=== PATIENT | female | born 1935 | race Caucasian/White ===

== ENCOUNTER 2018-02-01 13:55 | Emergency (ER) | payer MEDICARE ==
[~2018-02-01] VITALS: Ht 160 cm; Wt 124.7 kg
[~2018-02-01 13:55] MED LIST: AMIODARONE HCL200 MG; ARICEPT5 MG PO; ASPIR-LOW81 MG PO; ATORVASTATIN CA20 MG PO; CARVEDILOL3.125 MG PO; CITALOPRAM HBR20 MG PO; CYANOCOBAL1000 MCG/M IV; FUROSEMIDE PO; FUROSEMIDE40 MG PO; GABAPENTIN300 MG PO; HYDRALAZINE HCL25 MG PO; HYDROXYZINE HCL25 MG PO; LISINOPRIL2.5 MG PO; NAMENDA10 MG; NITROFURANTOIN100 MG PO; POTASSIUM CHLO10 MEQ PO; PROMETHAZINE HC25 M1 PO; ROPINIROLE HCL1 MG PO; ROPINIROLE HCL5 MG PO; SERTRALINE HCL50 MG PO; XANAX1 MG PO; [UNRECOGNIZED DRUG - OTHER]; eliquis PO
--- OUTSIDE RECORDS SUMMARY | 2018-02-01 13:58 | XMS REPORT | Clinical Summary ---
Author Author [facility] Organization [facility] Address Unknown Phone Unavailable Care Team Providers Care Pet Care Assistant Name Role Phone Fabian Tipton MD PCP Unavailable Allergies Active Allergy Reactions Severity Noted Date Comments Penicillins 05/23/2017 Current Medications Prescription Sig. Disp. Refills Start End Date Status Date lisinopril Take 2.5 mg by mouth Active (PRINIVIL,ZESTRIL) 2.5 mg daily. tablet memantine (NAMENDA) 10 MG Take 10 mg by mouth 2 Active tablet (two) times a day. aspirin (ECOTRIN) 81 MG Take 81 mg by mouth Active enteric coated tablet daily. ALPRAZolam (XANAX) 1 MG Take 1 mg by mouth Active tablet nightly as needed for anxiety. rOPINIRole (REQUIP) 1 MG TAKE ONE TABLET BY MOUTH 3 11/07/20 Active tablet ONE TO THREE HOURS BEFORE 17 BEDTIME gabapentin (NEURONTIN) Take 300 mg by mouth 3 12/30/19 Discontin 300 mg capsule (three) times a day as 18 ued needed. furosemide (LASIX) 40 mg Take 40 mg by mouth 2 12/30/19 Discontin tablet (two) times a day. 18 ued rOPINIRole (REQUIP) 1 MG Take 1 mg by mouth 05/30/20 Discontin tablet nightly as needed. 17 ued amIODarone (PACERONE) 200 Take 200 mg by mouth 2 12/30/19 Discontin MG tablet (two) times a day. 18 ued acetaminophen (TYLENOL) Take 2 tablets (650 mg 05/27/20 06/26/20 325 MG tablet total) by mouth every 6 17 17 (six) hours as needed for mild pain for up to 30 days. ondansetron ODT Take 1 tablet (4 mg 07/04/20 08/03/20 (ZOFRAN-ODT) 4 MG total) by mouth every 8 17 17 disintegrating tablet (eight) hours as needed for nausea or vomiting for up to 30 days. atorvastatin (LIPITOR) 10 Take 1 tablet (10 mg 30 tablet 0 05/27/20 06/26/20 MG tablet total) by mouth nightly 17 17 for 30 days. enoxaparin (LOVENOX) 30 Inject 0.3 mL (30 mg 9 mL 0 05/27/20 mg/0.3 mL syringe total) under the skin 17 17 daily for 30 days. sennosides-docusate Take 1 tablet by mouth as 05/27/20 06/26/20 sodium (SENOKOT-S) 8.6-50 needed for constipation 17 17 mg per tablet for up to 30 days. levoFLOXacin (LEVAQUIN) Take 1 tablet (250 mg 05/27/20 06/06/20 250 MG tablet total) by mouth daily for 17 17 10 days. levoFLOXacin (LEVAQUIN) Take 1 tablet (250 mg 7 tablet 0 12/18/19 Discontin 250 MG tablet total) by mouth daily for 18 18 ued 7 days. megestrol (MEGACE) 400 Take 5 mL (200 mg total) 150 mL 0 12/31/19 mg/10 mL (40 mg/mL) by mouth daily for 30 18 18 suspension days. metoprolol tartrate Take 1 tablet (50 mg 60 tablet 0 12/30/19 (LOPRESSOR) 50 mg tablet total) by mouth 2 (two) 18 18 times a day for 30 days. polyethylene glycol Take 17 g by mouth daily 30 packet 0 12/31/19 (MIRALAX) 17 gram packet for 30 days. 18 18 levETIRAcetam (KEPPRA) Take 1 tablet (250 mg 60 tablet 0 12/30/19 250 MG tablet total) by mouth 2 (two) 18 18 times a day for 30 days. apixaban (ELIQUIS) 2.5 mg Take 1 tablet (2.5 mg 60 tablet 0 12/30/19 01/30/20 tablet total) by mouth 2 (two) 18 18 times a day for 30 days. BUMETanide (BUMEX) 2 MG Take 1 tablet (2 mg 60 tablet 0 12/30/1907/13 tablet total) by mouth 2 (two) 18 18 times a day for 30 days. sennosides-docusate Take 1 tablet by mouth 2 60 tablet 0 12/30/19 sodium (SENOKOT-S) 8.6-50 (two) times a day for 30 18 18 mg per tablet days. Active Problems Problem Noted Date Delirium 12/29/2017 Volume overload 12/29/2017 Multifocal pneumonia 12/21/2017 Acute on chronic systolic CHF (congestive heart failure), NYHA class 3 12/13 Alzheimer's disease 12/13/2017 Pneumonia of right lung due to infectious organism 12/12/2017 UTI (urinary tract infection) 05/23/2017 Hypertension Falls Resolved Problems Problem Noted Date Resolved Date CHF (congestive heart failure) 12/13/2017 Encounters Date Type Specialty Care Team Description 12/30/2017 Procedure Pass Gastroenterology 12/30/2017 Surgery Gastroenterology Jorge Bell MD BRONCHOSCOPY 12/21/2017 [facility] General Internal Medicine Guerrero Mccloud Multifocal pneumonia - Encounter MD Misbah (Primary Dx) 12/30/2017 Toribio Garcia DO 12/12/2017 [facility] General Internal Medicine Jordon Stafford, Pneumonia of right lung - Encounter MD due to infectious 12/18/2017 Toribio Mendez DO organism, unspecified Cinda Egan MD part of lung (Primary Abouelseoud, Tanseem Dx); Jann Barber MD Weakness 05/26/2017 [facility] General Internal Medicine Toribio Garcia DO 05/25/2017 [facility] Rajwinder Maciel MD Encounter 05/23/2017 [facility] General Internal Medicine Carole Ledesma, Acute cystitis without - Encounter hematuria (Primary Dx); 05/30/2017 Rajwinder Maciel MD Acute encephalopathy Toribio Garcia, Hanane Dawson MD after 01/31/2017 Social History Tobacco Use Types Packs/Day Years Used Date Never Smoker Smokeless Tobacco: Never Used Alcohol Use Drinks/Week oz/Week Comments No Sex Assigned at Date Recorded Not on file Last Filed Vital Signs Vital Sign Reading Time Taken Blood Pressure 134/82 12/30/2017 3:12 PM JACK MACHINE OPERATOR Pulse 92 12/30/2017 3:12 PM JACK MACHINE OPERATOR Temperature 36.4 C (97.6 F) 12/30/2017 3:12 PM JACK MACHINE OPERATOR Respiratory Rate 20 12/30/2017 3:12 PM JACK MACHINE OPERATOR Oxygen Saturation 96% 12/30/2017 3:12 PM JACK MACHINE OPERATOR Inhaled Oxygen - - Concentration Weight 88.8 kg (195 lb 12.8 oz) 12/29/2017 5:30 AM JACK MACHINE OPERATOR Height 162.6 cm (5' 4") 12/22/2017 3:37 PM JACK MACHINE OPERATOR Body Mass Index 33.61 12/29/2017 5:30 AM JACK MACHINE OPERATOR Plan of Treatment Health Maintenance Due Date Last Done Comments ZOSTER VACCINE 1996 PNEUMOCOCCAL 01/23/2001 POLYSACCHARIDE VACCINE AGE 65 AND OVER PNEUMOCOCCAL-13 01/23/2001 INFLUENZA VACCINE 06/24/2017 Procedures Procedure Name Priority Date/Time Associated Diagnosis Comments BRONCHOSCOPY 12/30/2017 Multifocal pneumonia 12:30 PM JACK MACHINE OPERATOR ECHOCARDIOGRAM 2D Routine 12/24/2017 Results for this COMPLETE W MMODE SPECTRAL 12:44 PM JACK MACHINE OPERATOR procedure are in the [facility] ([id number]) results section. after 01/31/2017 Results * Respiratory culture (12/30/2017 1:12 PM) Component Value Ref Range Respiratory culture Normal oral ayden isolated. isolate Comment: Specimen Information Specimen Source: Bronchial Washing Specimen Site: Right and left lobes Specimen Performing Laboratory Bronchial washing - Right [facility] DEPARTMENT OF PATHOLOGY AND GENOMIC MEDICINE and left lobes [address] [place] [address] * Gram stain (12/30/2017 1:12 PM) Only the most recent of 3 results within the time period is included. Component Value Ref Range Gram stain isolate Few WBC's Occasional Gram positive cocci in chains Comment: Specimen Information Specimen Source: Bronchial Washing Specimen Site: Right and left lobes Specimen Performing Laboratory Bronchial washing - Right [facility] DEPARTMENT OF PATHOLOGY AND GENOMIC MEDICINE and left lobes [address] [place] [id number] * Estimated GFR (12/30/2017 5:37 AM) Only the most recent of 21 results within the time period is included. Component Value Ref Range GFR Non Af Amer 36 (A) mL/min/1.73 m2 GFR Af Amer 44 (A) mL/min/1.73 m2 Comment: Chronic kidney disease: <60 mL/min/1.73m2 Kidney failure: <15 mL/min/1.73m2 The estimated GFR is calculated from the IDMS-traceable Modification of Diet in Renal Disease Equation. The accuracy of the calculation is poor when the creatinine is normal. Calculated values >90 mL/min/1.73m2 are not reported. This equation has not been validated in children (<18 years), women, the elderly (>70 years), or ethnic groups other than Caucasians and Americans. Specimen Performing Laboratory Plasma specimen [facility] DEPARTMENT OF PATHOLOGY AND GENOMIC MEDICINE [address] [place] [address] * CBC with platelet and differential (12/30/2017 5:37 AM) Only the most recent of 21 results within the time period is included. Component Value Ref Range WBC 8.3 4.2 - 11.0 k/uL RBC 3.74 (L) 4.04 - 5.86 m/uL HGB 10.9 (L) 11.5 - 15.3 g/dL HCT 35.6 34.0 - 45.0 % MCV 95.2 80.0 - 98.0 fL MCH 29.1 27.0 - 34.0 pg MCHC 30.6 (L) 31.5 - 36.5 g/dL RDW - SD 51.9 (H) 37.0 - 51.0 fL MPV 10.9 (H) 7.4 - 10.4 fL Platelet count 307 150 - 400 k/uL Nucleated RBC 0.70 /100 WBC Neutrophils 66.7 (H) 36.0 - 66.0 % Lymphocytes 17.5 (L) 24.0 - 44.0 % Monocytes 9.7 (H) 0.0 - 6.0 % Eosinophils 3.4 0.0 - 6.0 % Basophils 1.1 0.0 - 1.2 % Immature granulocytes 1.6 (H) 0.0 - 1.0 % Specimen Performing Laboratory Blood [facility] DEPARTMENT OF PATHOLOGY AND [employer] MEDICINE [address] [place] [address] * B natriuretic peptide (12/30/2017 5:37 AM) Only the most recent of 5 results within the time period is included. Component Value Ref Range BNP 2,270 (H) 0 - 100 pg/mL Specimen Performing Laboratory Blood [facility] DEPARTMENT OF PATHOLOGY AND GENOMIC MEDICINE [address] [place] [address] * Comprehensive metabolic panel (12/30/2017 5:37 AM) Only the most recent of 9 results within the time period is included. Component Value Ref Range Sodium 142 135 - 150 mEq/L Potassium 3.8 3.5 - 5.0 mEq/L Chloride 102 100 - 109 mEq/L CO2 31 24 - 32 mmol/L Anion gap 9 7 - 15 mEq/L Comment: Starting from February , anion gap calculation no longer incorporates potassium. Please note the change. BUN 25 (H) 7 - 18 mg/dL Creatinine 1.4 0.8 - 1.5 mg/dL Glucose 102 (H) 65 - 100 mg/dL Calcium 8.8 8.6 - 10.7 mg/dL Protein 6.8 6.3 - 8.2 g/dL Albumin 2.5 (L) 3.2 - 5.0 g/dL A/G ratio 0.6 (L) 0.7 - 3.8 Alkaline phosphatase 107 30 - 120 U/L AST 44 (H) 15 - 37 U/L ALT 80 (H) 30 - 65 U/L Total bilirubin 0.5 0.2 - 1.2 mg/dL Specimen Performing Laboratory Plasma specimen [facility] DEPARTMENT OF PATHOLOGY AND GENOMIC MEDICINE [address] [place] [address] * XR Chest 2 Vw (12/29/2017 8:52 AM) Only the most recent of 3 results within the time period is included. Specimen Performing Laboratory [facility] [address] [place] [address] Narrative EXAMINATION:XR CHEST 2 VW CLINICAL HISTORY:Pneumonia COMPARISON: December 26, 2017 . IMPRESSION: 1.Heart size is enlarged. 2.There are underlying interstitial changes in lungs bilaterally in addition to increasing right upper and lower lobe infiltrates likely relating to pneumonia. Mild underlying edema is also likely present. Small left pleural effusion persists. 3.There is a transvenous pacemaker over the left chest. 4.No pneumothorax [id number] Procedure Note Interface, Radiology Results Incoming - 12/29/2017 8:59 AM JACK MACHINE OPERATOR EXAMINATION: XR CHEST 2 VW CLINICAL HISTORY: Pneumonia COMPARISON: December 26, 2017 . IMPRESSION: 1. Heart size is enlarged. 2. There are underlying interstitial changes in lungs bilaterally in addition to increasing right upper and lower lobe infiltrates likely relating to pneumonia. Mild underlying edema is also likely present. Small left pleural effusion persists. 3. There is a transvenous pacemaker over the left chest. 4. No pneumothorax [id number] * Basic metabolic panel (12/29/2017 6:05 AM) Only the most recent of 12 results within the time period is included. Component Value Ref Range Sodium 140 135 - 150 mEq/L Potassium 3.2 (L) 3.5 - 5.0 mEq/L Chloride 103 100 - 109 mEq/L CO2 30 24 - 32 mmol/L Anion gap 7 7 - 15 mEq/L Comment: Starting from February , anion gap calculation no longer incorporates potassium. Please note the change. BUN 29 (H) 7 - 18 mg/dL Creatinine 1.3 0.8 - 1.5 mg/dL Glucose 107 (H) 65 - 100 mg/dL Calcium 8.4 (L) 8.6 - 10.7 mg/dL Specimen Performing Laboratory Plasma specimen [facility] DEPARTMENT OF PATHOLOGY AND GENOMIC MEDICINE [address] [place] [address] * Anti Xa, unfractionated (12/26/2017 6:15 PM) Only the most recent of 5 results within the time period is included. Component Value Ref Range Anti Xa, unfractionated 0.87 (H)Comment: Therapeutic Range: 0.30 - 0.70 0.30 - 0.70 U/mL U/mL Specimen Performing Laboratory Blood [facility] DEPARTMENT OF PATHOLOGY AND GENOMIC MEDICINE [address] [place] [address] * XR Chest 1 Vw (12/26/2017 9:55 AM) Specimen Performing Laboratory [facility] [address] [place] [address] Narrative EXAMINATION:XR CHEST 1 VW CLINICAL HISTORY:Congestive Heart Failure XR CHEST 1 VWimages are submitted COMPARISON:12/24/2017 FINDINGS: A dual-lead pacemaker is present. The cardiac silhouette is enlarged. There is persistence in the vascular congestion and interstitial edema. There is minimal change since the prior study. Minimal lower lobe atelectasis is present. There is no pleural effusion present. IMPRESSION: 1. No significant interval change in the vascular congestion and interstitial edema. 2. Cardiomegaly. [id number] Procedure Note Interface, Radiology Results Incoming - 12/26/2017 10:18 AM JACK MACHINE OPERATOR EXAMINATION: XR CHEST 1 VW CLINICAL HISTORY: Congestive Heart Failure XR CHEST 1 VW images are submitted COMPARISON: 12/24/2017 FINDINGS: A dual-lead pacemaker is present. The cardiac silhouette is enlarged. There is persistence in the vascular congestion and interstitial edema. There is minimal change since the prior study. Minimal lower lobe atelectasis is present. There is no pleural effusion present. IMPRESSION: 1. No significant interval change in the vascular congestion and interstitial edema. 2. Cardiomegaly. [id number] * Partial thromboplastin time, activated (12/25/2017 11:40 AM) Only the most recent of 3 results within the time period is included. Component Value Ref Range PTT 29.1 23.0 - 36.0 sec Comment: PTT therapeutic range for unfractionated heparin is 61.0-112.0 seconds which corresponds to Anti-Xa 0.3-0.7 U/ml. Note: Change in Panic Value The PTT Panic Value is changing from 110 sec. to 100 sec. due to new instrumentation and reagents. Correlation studies have been performed to validate this result. Specimen Performing Laboratory Blood [facility] DEPARTMENT OF PATHOLOGY AND GENOMIC MEDICINE [address] [place] [address] * Prothrombin time with INR (12/25/2017 11:40 AM) Only the most recent of 3 results within the time period is included. Component Value Ref Range Prothrombin time 17.2 (H) 12.0 - 15.0 sec INR 1.38 (H) 0.92 - 1.12 Comment: For patients on anticoagulant therapy, reference ranges below: Indication: INR Value Treatment of Venous Thrombosis, 2.0-3.0 pulmonary emboli, or prophylaxis of a venous thrombosis, or systemic emboli. High dose, high risk patients 3.0-4.5 with mechanical valves. NOTE: INR values over 3.0 are sometimes associated with gastrointestinal hemorrhage, especially values over 4.0. Specimen Performing Laboratory Blood [facility] DEPARTMENT OF PATHOLOGY AND GENOMIC MEDICINE [address] [place] [address] * CBC hemogram (12/25/2017 11:40 AM) Component Value Ref Range WBC 9.7 4.2 - 11.0 k/uL RBC 3.11 (L) 4.04 - 5.86 m/uL HGB 9.2 (L) 11.5 - 15.3 g/dL HCT 29.3 (L) 34.0 - 45.0 % MCV 94.2 80.0 - 98.0 fL MCH 29.6 27.0 - 34.0 pg MCHC 31.4 (L) 31.5 - 36.5 g/dL RDW - SD 51.5 (H) 37.0 - 51.0 fL MPV 11.4 (H) 7.4 - 10.4 fL Platelet count 235 150 - 400 k/uL Nucleated RBC 0.00 /100 WBC Specimen Performing Laboratory Blood [facility] DEPARTMENT OF PATHOLOGY AND GENOMIC MEDICINE [address] [facility] [place] [address] * XR Abdomen 1 Vw (12/24/2017 7:43 PM) Specimen Performing Laboratory [facility] [address] [place] [address] Narrative EXAMINATION:XR ABDOMEN 1 VW CLINICAL HISTORY:Vomiting COMPARISON:None. IMPRESSION: 1.A moderate amount stool is present within the colon which may relate to constipation. The bowel gas pattern is nonspecific. 2.There are postsurgical changes in the left upper quadrant abdomen. 3.Osseous structures are significantly demineralized. There are atherosclerotic changes involving the abdominal aorta. 4.No evidence to suggest free intraperitoneal air. [facility]-[id number] Procedure Note Interface, Radiology Results Incoming - 12/24/2017 7:54 PM JACK MACHINE OPERATOR EXAMINATION: XR ABDOMEN 1 VW CLINICAL HISTORY: Vomiting COMPARISON: None. IMPRESSION: 1. A moderate amount stool is present within the colon which may relate to constipation. The bowel gas pattern is nonspecific. 2. There are postsurgical changes in the left upper quadrant abdomen. 3. Osseous structures are significantly demineralized. There are atherosclerotic changes involving the abdominal aorta. 4. No evidence to suggest free intraperitoneal air. [facility]-[id number] * Lipase level (12/24/2017 6:26 PM) Only the most recent of 2 results within the time period is included. Component Value Ref Range Lipase 50 (L) 65 - 230 U/L Specimen Performing Laboratory Plasma specimen [facility] DEPARTMENT OF PATHOLOGY AND GENOMIC MEDICINE [address] [facility] [place] [address] * Amylase level (12/24/2017 6:26 PM) Component Value Ref Range Amylase 18 (L) 34 - 122 U/L Specimen Performing Laboratory Plasma specimen [facility] DEPARTMENT OF PATHOLOGY AND GENOMIC MEDICINE [address] [id number] * Ammonia level (12/24/2017 6:26 PM) Only the most recent of 2 results within the time period is included. Component Value Ref Range Ammonia 24 3 - 37 umol/L Specimen Performing Laboratory Plasma specimen [facility] DEPARTMENT OF PATHOLOGY AND GENOMIC MEDICINE [address] [place] [address] * Echocardiogram complete w contrast and 3D if needed (12/24/2017 12:44 PM) Component Value Ref Range Velocity Ratio (V1/V2) 0.69 m/s IVS,d 0.68 0.6 - 1.2 cm EF 32.39 % LVPWD,d 0.95 cm AoV Mean PG 2.94 mmHg AV LVOT peak gradient 2.30 mmHg MV mean gradient 2.39 mmHg MV valve area p 1/2 5.19 cm2 method E/A ratio 120.00 E wave decelartion time 146.24 msec LVOT Diam,S 1.87 cm LVOT area 2.75 cm2 LVOT Vmax 0.76 m/s LVOT VTI 0.12 m AoV Peak PG 3.77 mmHg MV Peak E Nir 1.20 m/s MV stenosis pressure 1/2 42.41 ms time MV Peak A Nir 0.01 m/s Ao Root Diameter 2.44 cm AoV Area, Vmax 1.89 cm2 AoV Area, VTI 1.70 cm2 AoV Vmax 1.10 m/s IVS/LVPW,2D 0.72 Left Atrium Dimension 3.23 cm Anterior LV,d 5.38 cm LV,s 4.55 cm TR Vpeak 3.19 mm/s MV E A ratio 83.33 mmHg TR pk grad 40.74 mmHg MR peak grad 6.65 mmHg Ao Root Diameter 2.44 cm LV SYS VOL 94.88 ml LV SANTORO VOL 140.33 ml LA area s A4C 27.87 cm2 LA Vol MOD A4C 98.29 ml LV SV Teich 2D 45.45 ml LV Vol s Teich PSAX 94.88 ml LVOT CO 2.82 l/min LVOT HR for LVOT CO 85.45 bpm MV Vmax 1.29 m MV VTI Tips 0.20 m AoV Vmn 0.83 IVS s 2D 0.86 LV FS Cube 2D 15.48 LV FS Teich 2D 15.48 AoV VTI 0.19 m LV EF,2D 39.63 % MV AE ratio 0.01 LVOT Vmn 0.46 Aov area Vmn 1.78 cm2 LVOT mean grad 1.04 mmHg MAX Pred HR 138.08 85 of MPHR 117.37 Calc MPHR 138.08 bpm IVS pct thck PLAX 25.84 % LV SV Cube 2D 61.83 ml LV vol d cube 2D 156.03 ml LV vol s cube 2D 94.20 ml LVPW pct thck PLAX 20.67 % LVPW s PLAX 1.14 cm MV Decel slope 8.21 m/s2 Pred Exer Dur R1 5.53 Pred METS R1 4.05 TV rest pulmonary artery 40.00 mmHg pressure Specimen Performing Laboratory [facility] [address] [place] [address] Narrative Left Ventricular ejection fraction is 30 - 35%. The left ventricle chamber size is moderately enlarged. Right ventricular size is normal. No pericardial effusion Trace mitral valve regurgitation Pulmonary hypertension is present. Mild-moderate tricuspid valve regurgitation. * XR Chest 1 Vw Portable (12/24/2017 8:38 AM) Only the most recent of 3 results within the time period is included. Specimen Performing Laboratory [facility] [address] [place] [address] Narrative EXAMINATION:XR CHEST 1 VW PORTABLE CLINICAL HISTORY:Congestive Heart Failure COMPARISON:December 23, 2017 IMPRESSION: There is no appreciable change from prior exam allowing for differences in technique.There are small bilateral pleural effusions. There is cardiomegaly and interstitial pulmonary edema. Patchy bilateral opacities seen on prior chest CT without significant improvement may be edema or pneumonia. [facility]-[id number] Procedure Note Interface, Radiology Results Incoming - 12/24/2017 11:21 AM JACK MACHINE OPERATOR EXAMINATION: XR CHEST 1 VW PORTABLE CLINICAL HISTORY: Congestive Heart Failure COMPARISON: December 23, 2017 IMPRESSION: There is no appreciable change from prior exam allowing for differences in technique. There are small bilateral pleural effusions. There is cardiomegaly and interstitial pulmonary edema. Patchy bilateral opacities seen on prior chest CT without significant improvement may be edema or pneumonia. [facility]-[id number] * Arterial blood gas (12/22/2017 4:15 PM) Component Value Ref Professor Of Special Education MAUDE ROY Collection site LBA O2 therapy NC pH, arterial 7.432 7.350 - 7.450 units pCO2, arterial 47.8 (H) 35.0 - 45.0 mmHg pO2, arterial 121.0 (H) 80.0 - 90.0 mmHg O2 saturation, arterial 98.9 95.0 - 100.0 % Base excess, arterial 7.6 mEq/L Bicarbonate 31.9 (H) 21.0 - 28.0 mEq/L O2 content 12.1 VOL% FiO2, inspired O2% 36.0 % Carboxyhemoglobin 0.7 0.0 - 1.4 % Comment: Reference Ranges: Carboxyhemoglobin Non smoker: 0.0 - 2.0% Smoker: 2.1 - 5.0% Heavy smoker: 5.1 - 9% Methemoglobin 0.5 0.0 - 1.0 % Hemoglobin, blood gas 8.7 (L) 12.0 - 16.0 g/dL pO2, A-a 86.3 mmHg Specimen Performing Laboratory Blood [facility] DEPARTMENT OF PATHOLOGY AND GENOMIC MEDICINE [address] [place] [address] * Phosphorus level (12/22/2017 9:14 AM) Component Value Ref Range Phosphorus 3.0 2.5 - 4.5 mg/dL Specimen Performing Laboratory Plasma specimen [facility] DEPARTMENT OF PATHOLOGY AND GENOMIC MEDICINE [address] [place] [id number] * Magnesium level (12/22/2017 9:14 AM) Component Value Ref Range Magnesium 1.60 1.60 - 2.40 mg/dL Specimen Performing Laboratory Plasma specimen [facility] DEPARTMENT OF PATHOLOGY AND GENOMIC MEDICINE [address] [place] [address] * Lactic acid level (12/22/2017 9:14 AM) Only the most recent of 2 results within the time period is included. Component Value Ref Range Lactic acid 0.8 0.5 - 2.2 mmol/L Specimen Performing Laboratory Blood [facility] DEPARTMENT OF PATHOLOGY AND GENOMIC MEDICINE [address] [place] [address] [place] [address] * Procalcitonin (12/22/2017 4:53 AM) Component Value Ref Range Procalcitonin 0.11 (H) <=0.10 ng/mL Comment: INTERPRETIVE INFORMATION: Procalcitonin PCT greater than 2.00 ng/mL: PCT levels above 2.00 ng/mL on the first day of ICU admission represent a high risk for progression to severe sepsis and/or septic shock. PCT less than 0.50 ng/mL: PCT levels below 0.50 ng/mL on the first day of ICU admission represent a low risk for progression to severe sepsis and/or septic shock. If the PCT measurement is performed shortly after the systemic infection process has started (usually less than 6 hours), these values may still be low. As various non-infectious conditions are known to induce PCT as well, PCT levels between 0.5 ng/mL and 2.0 ng/mL should be reviewed carefully to take into account the specific clinical back-ground and condition(s) of the individual patient. Performed at: [facility] [address] [facility] [place] [address] Specimen Performing Laboratory Serum [facility] [address] [place] [address] * Streptococcus pneumoniae urinary antigen (12/22/2017 3:53 AM) Component Value Ref Range Strep pneumo urinary Ag Negative for Streptococcus pneumoniae antigen. Comment: Specimen Information Specimen Source: Urine Specimen Site: Catheterized Specimen Performing Laboratory Urine - Catheterized [facility] DEPARTMENT OF PATHOLOGY AND GENOMIC MEDICINE [address] [place] [address] * Legionella urinary antigen (12/22/2017 3:53 AM) Component Value Ref Range Legionella urinary Negative for Legionella serogroup 1 antigen. antigen Comment: Specimen Information Specimen Source: Urine Specimen Site: Catheterized Specimen Performing Laboratory Urine - Catheterized [facility] DEPARTMENT OF PATHOLOGY AND GENOMIC MEDICINE [address] [place] [address] * CT Chest Wo Contrast (12/22/2017 1:45 AM) Specimen Performing Laboratory [facility] [address] [place] [address] Narrative Examination:CT CHEST WO CONTRAST Clinical History: pna Comparison: None. Findings: CT scans are performed using radiation dose reduction techniques.Technical factors are evaluated and adjusted to ensure appropriate moderation of exposure. Automated dose management technology is applied to adjust radiation exposure while achieving a diagnostic quality image. CT scan of the chest was performed. Bilateral multiple patchy areas of groundglass infiltrates are noted in all lobes. There are also some interstitial infiltrates noted in the right upper lobe and right lower lobe. Small bilateral pleural effusions are noted. No pneumothorax is seen. Precarinal lymphadenopathy measures up to 1.3 cm in the short axis. The visualized upper abdomen shows no acute abnormality. IMPRESSION: 1. Multiple bilateral patchy areas of groundglass infiltrates most consistent with multifocal pneumonia. There are also some interstitial infiltrates in the right upper lobe and right lower lobe as well. 2. Small bilateral pleural effusions. 3. Precarinal lymphadenopathy likely reactive. 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 Findings: CT scans are performed using radiation dose reduction techniques. Technical factors are evaluated and adjusted to ensure appropriate moderation of exposure. Automated dose management technology is applied to adjust radiation exposure while achieving a diagnostic quality image. CT scan of the chest was performed. Bilateral multiple patchy areas of groundglass infiltrates are noted in all lobes. There are also some interstitial infiltrates noted in the right upper lobe and right lower lobe. Small bilateral pleural effusions are noted. No pneumothorax is seen. Precarinal lymphadenopathy measures up to 1.3 cm in the short axis. The visualized upper abdomen shows no acute abnormality. IMPRESSION: 1. Multiple bilateral patchy areas of groundglass infiltrates most consistent with multifocal pneumonia. There are also some interstitial infiltrates in the right upper lobe and right lower lobe as well. 2. Small bilateral pleural effusions. 3. Precarinal lymphadenopathy likely reactive. [facility]-[id number] * CT Head Wo Contrast (12/22/2017 1:44 AM) Only the most recent of 3 results within the time period is included. [facility] [address] [place] [address] Narrative Examination:CT HEAD WO CONTRAST Clinical History: AMS Comparison: None. CT scan of the brain was performed without intravenous contrast. CT scans are performed using radiation dose reduction techniques.Technical factors are evaluated and adjusted to ensure appropriate moderation of exposure. Automated dose management technology is applied to adjust radiation exposure while achieving a diagnostic quality image. No mass effect or midline shift is seen. The ventricles are normal in size. No intracranial hemorrhage is seen. Bilateral periventricular low densities of the white matter are noted. Subramanian-white junctions are preserved. Diffuse volume loss is noted. IMPRESSION: 1. Chronic small vessel ischemic disease of the periventricular white matter but no acute intracranial abnormality identified. [facility]-[id number] Procedure Note Interface, Radiology Results Incoming - 12/22/2017 1:51 AM JACK MACHINE OPERATOR Examination: CT HEAD WO CONTRAST Clinical History: AMS Comparison: None. CT scan of the brain was performed without intravenous contrast. CT scans are performed using radiation dose reduction techniques. Technical factors are evaluated and adjusted to ensure appropriate moderation of exposure. Automated dose management technology is applied to adjust radiation exposure while achieving a diagnostic quality image. No mass effect or midline shift is seen. The ventricles are normal in size. No intracranial hemorrhage is seen. Bilateral periventricular low densities of the white matter are noted. Subramanian-white junctions are preserved. Diffuse volume loss is noted. IMPRESSION: 1. Chronic small vessel ischemic disease of the periventricular white matter but no acute intracranial abnormality identified. [facility]-[id number] * ECG ED Preliminary Interpretation - NOT AN ORDER (12/22/2017 12:02 AM) Only the most recent of 2 results within the time period is included. Narrative Guerrero Mccloud MD 12/22/2017 12:02 AM ECG ED Preliminary Interpretation - Not an Order Performed by: GUERRERO MCCLOUD Authorized by: GUERRERO MCCLOUD Previous ECG: Previous ECG:Compared to current Similarity:No change Interpretation: Interpretation: abnormal Rate: ECG rate:98 Rhythm: Rhythm: atrial fibrillation Ectopy: Ectopy: PVCs QRS: QRS axis:Left Conduction: Conduction: abnormal Abnormal conduction: complete LBBB ST segments: ST segments:Normal T waves: T waves: normal * ECG 12 lead (12/21/2017 11:57 PM) Only the most recent of 4 results within the time period is included. Component Value Ref Range Ventricular rate 98 Atrial rate 63 QRSD interval 140 QT interval 398 QTC interval 508 QRS axis 1 -39 T wave axis -40 EKG impression Atrial fibrillation with occasional atrial-paced complexes and with premature ventricular or aberrantly conducted complexes-Left axis deviation-Left bundle branch block-Abnormal ECG-In automated comparison with ECG of 16-DEC-2017 12:31,-Electronic atrial pacemaker has replaced Electronic ventricular pacemaker- Specimen Performing Laboratory [facility] MUSE [address] [place] [address] * Blood culture, aerobic & anaerobic (12/21/2017 11:49 PM) Only the most recent of 6 results within the time period is included. Component Value Ref Range Blood culture isolate No growth after 5 days of incubation. Comment: Specimen Information Specimen Source: Blood Specimen Site: right hand Specimen Performing Laboratory Blood [facility] DEPARTMENT OF PATHOLOGY AND GENOMIC MEDICINE [address] [place] [id number] * Troponin (12/21/2017 11:19 PM) Only the most recent of 5 results within the time period is included. Component Value Ref Range Troponin 0.02 0.00 - 0.60 ng/mL Comment: 0.11 - 1.49 ng/ml May indicate increased risk of acute coronary syndrome. >=1.5 ng/ml Consistent with acute myocardial infarction. The diagnostic value of a single normal or non-diagnostic result is questionable. Serial samples at 2-6 hour intervals are required to rule out acute myocardial injury. Specimen Performing Laboratory Plasma specimen [facility] DEPARTMENT OF PATHOLOGY AND GENOMIC MEDICINE [address] [place] [address] * Urinalysis screen and microscopy, with reflex to culture (12/21/2017 10:24 PM) Only the most recent of 3 results within the time period is included. Component Value Ref Range Specimen site Catheterized Color, UA Straw Appearance, UA Clear Specific gravity, UA 1.008 1.001 - 1.035 pH, UA 5.0 5.0 - 8.5 Protein, UA Negative Negative Glucose, UA Negative Negative Ketones, UA Negative Negative Bilirubin, UA Negative Negative Blood, UA Negative Negative Nitrite, UA Negative Negative Urobilinogen, UA Negative <2.0 Leukocyte esterase, UA Negative Negative Epithelial cells, UA Few /HPF WBC, UA 1 0 - 5 /HPF RBC, UA 1 0 - 5 /HPF Bacteria, UA None seen None seen Yeast, UA None seen Yeast with pseudohyphae, None seen UA Hyaline casts, UA 7 /LPF Specimen Performing Laboratory Urine [facility] DEPARTMENT OF PATHOLOGY AND GENOMIC MEDICINE [address] [place] [address] * Urine culture (12/21/2017 10:24 PM) Only the most recent of 3 results within the time period is included. Component Value Ref Range Urine culture SEE COMMENTComment: Bacteriuria screen negative. Specimen Performing Laboratory [facility] DEPARTMENT OF PATHOLOGY AND GENOMIC MEDICINE [address] [place] [address] * Respiratory pathogen panel (12/13/2017 6:47 AM) Component Value Ref Range Respiratory pathogen Negative for all pathogens tested: panel Negative for Adenovirus Negative for Coronavirus HKU1 Negative for Coronavirus NL63 Negative for Coronavirus 229E Negative for Coronavirus OC43 Negative for Human Metapneumovirus Negative for Rhinovirus/Enterovirus Negative for Influenza A Negative for Influenza A/H1 Negative for Influenza A/H3 Negative for Influenza A/H1-2009 Negative for Influenza B Negative for Parainfluenza Virus 1 Negative for Parainfluenza Virus 2 Negative for Parainfluenza Virus 3 Negative for Parainfluenza Virus 4 Negative for Respiratory Syncytial Virus Negative for Bordetella pertussis Negative for Chlamydophila pneumoniae Negative for Mycoplasma pneumoniae This real-time PCR assay detects the presence of nucleic acids (RNA or DNA) for the respiratory pathogens listed. A result of "Not-detected" does not exclude the possibility of the presence of one or more pathogens at concentrations less than the detectable limits of the assay. Comment: Specimen Information Specimen Source: Nares Specimen Site: Not specified Specimen Performing Laboratory Nares - Not specified [facility] DEPARTMENT OF PATHOLOGY AND GENOMIC MEDICINE [address] [place] [address] * XR Hip 2-3 View Left (12/12/2017 10:47 PM) [place] [address] Narrative EXAMINATION:XR HIP 2-3 VIEWS LEFT CLINICAL HISTORY:Fall COMPARISON:None. FINDINGS: Arthritic changes are noted involving the left hip joint. There is no evidence of fracture or dislocation. IMPRESSION: A fracture is not identified. [facility]-[id number] Procedure Note Interface, Radiology Results Incoming - 12/12/2017 10:52 PM JACK MACHINE OPERATOR EXAMINATION: XR HIP 2-3 VIEWS LEFT CLINICAL HISTORY: Fall COMPARISON: None. FINDINGS: Arthritic changes are noted involving the left hip joint. There is no evidence of fracture or dislocation. IMPRESSION: A fracture is not identified. [facility]-[id number] * XR Knee 1 Or 2 Vw Left (12/12/2017 10:46 PM) Specimen Performing Laboratory [place] [id number] Narrative EXAMINATION:XR KNEE 1 OR 2 VW LEFT CLINICAL HISTORY:Fall COMPARISON:None. IMPRESSION: Old healed fracture of the proximal fibula is noted. Extensive chondrocalcinosis is noted involving the knee. Small superior patellar spur is present. There is no evidence of fracture or dislocation. [facility]-[id number] Procedure Note Interface, Radiology Results Incoming - 12/12/2017 10:51 PM JACK MACHINE OPERATOR EXAMINATION: XR KNEE 1 OR 2 VW LEFT CLINICAL HISTORY: Fall COMPARISON: None. IMPRESSION: Old healed fracture of the proximal fibula is noted. Extensive chondrocalcinosis is noted involving the knee. Small superior patellar spur is present. There is no evidence of fracture or dislocation. [facility]-[id number] * XR Ribs 2 Vw Right (12/12/2017 5:28 PM) Specimen Performing Laboratory [facility] [address] [place] [address] Narrative EXAMINATION:XR RIBS 2 VW RIGHT CLINICAL HISTORY:fall COMPARISON:None. FINDINGS: Patchy consolidation is present in the right upper lobe. There is no evidence of rib fracture, pleural effusion, or pneumothorax. IMPRESSION: No evidence of rib fracture. [facility]-[id number] Procedure Note Interface, Radiology Results Incoming - 12/12/2017 6:00 PM JACK MACHINE OPERATOR EXAMINATION: XR RIBS 2 VW RIGHT CLINICAL HISTORY: fall COMPARISON: None. FINDINGS: Patchy consolidation is present in the right upper lobe. There is no evidence of rib fracture, pleural effusion, or pneumothorax. IMPRESSION: No evidence of rib fracture. [facility]-[id number] * Influenza antigen (12/12/2017 4:26 PM) Component Value Ref Range Influenza antigen Negative for Influenza A/B antigen. Comment: Specimen Information Specimen Source: Nares Specimen Site: Right Specimen Performing Laboratory Nares - Right [facility] DEPARTMENT OF PATHOLOGY AND GENOMIC MEDICINE [address] [place] [address] * Lactic acid level, SEPSIS - Now and repeat 2x every 3 hours (12/12/2017 2:25 PM) Component Value Ref Range Lactic acid 1.7 0.5 - 2.2 mmol/L Specimen Performing Laboratory Blood [facility] DEPARTMENT OF PATHOLOGY AND GENOMIC MEDICINE [address] [place] [address] * Hepatic function panel (12/12/2017 2:25 PM) Component Value Ref Range Albumin 2.7 (L) 3.2 - 5.0 g/dL Total bilirubin 0.5 0.2 - 1.2 mg/dL Bilirubin direct 0.2 0.0 - 0.4 mg/dL Alkaline phosphatase 92 30 - 120 U/L Protein 6.8 6.3 - 8.2 g/dL ALT 26 (L) 30 - 65 U/L AST 28 15 - 37 U/L Specimen Performing Laboratory Plasma specimen [facility] DEPARTMENT OF PATHOLOGY AND GENOMIC MEDICINE [address] [place] [address] * Lipid panel (05/24/2017 5:19 AM) Component Value Ref Range Cholesterol 157 120 - 200 mg/dL Triglycerides 59 50 - 150 mg/dL HDL cholesterol 53 40 - 60 mg/dL LDL cholesterol 91Comment: Result obtained by direct LDL mg/dL measurement Specimen Performing Laboratory Plasma specimen [facility] DEPARTMENT OF PATHOLOGY AND GENOMIC MEDICINE [address] [place] [address] * POC glucose (05/23/2017 5:32 PM) Component Value Ref Range POC glucose 98 65 - 100 mg/dL Comment: Meter ID: [id number] Senior It Assistant: Helga Geiger Specimen Performing Laboratory [facility] DEPARTMENT OF PATHOLOGY AND GENOMIC MEDICINE [address] [place] [address] after 01/31/2017 Insurance Payer Benefit Subscriber ID Type Phone Address Plan / Group BCBS MEDICARE BLUE xxxxxxxxxxxx H[place] [address]
--- OUTSIDE RECORDS SUMMARY | 2018-02-01 13:58 | XMS REPORT ---
Author Author [facility] Address Unknown Phone Unavailable Care Team Providers Care Water Taxi Operator Name Role Phone HOLLEY JAEGER Unavailable Unavailable OJSE ALEJANDRO MCKEON Unavailable Unavailable Problems This patient has no known problems. Allergies, Adverse Reactions, Alerts This patient has no known allergies or adverse reactions. Medications This patient has no known medications. Results Test Description Test Time Test Comments Text Results Atomic Results Result Comments LOWER LEG RIGHT [place] [address] Patient Name: MARQUIS SCHNEIDER MR #: [id number] : 1935 Age/Sex: 82/F Req # : [id number] Adm Physician: Ordered by: LES GEIGER Report #: [id number] Location: ER Room/Bed: Procedure: [id number] DX/LOWER LEG RIGHT Exam Date: 08/19/17 Exam Time: 1944 REPORT STATUS: Signed EXAM: LOWER LEG RIGHT DATE: 08/19/2017 6 :40 PM INDICATION: COMPARISON: None FINDINGS: Crosstable lateral of the mid to distal leg. Proximal tibia/fibula not included. 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 The ankle is not adequately visualized. No definite fracture within limitations in the tibia or fibula. IMPRESSION: Limited exam. No definite fracture. Dedicated ankle radiographs recommended if findings referable to this region. Signed by: Dr. Tyrese Chacon MD on 08/19/2017 8: 17 PM Dictated By: TYRESE CHACON MD 16 Transcribed By: ANASTASIA on 08/19/172016 COPY TO: LES GEIGER FEMUR TWO VIEW MINIMUM RIGHT [place] [address] Patient Name: MARQUIS SCHNEIDER MR #: [id number] : 1935 Age/Sex: 82/F Req #: [id number] Adm Physician: Ordered by: LES GEIGER Report #: [id number] Location: ER Room/Bed: Procedure: [id number] DX/FEMUR TWO VIEW MINIMUM RIGHT Exam Date: Exam Time: REPORT STATUS: Signed EXAM: FEMUR TWO VIEW MINIMUM RIGHT DATE: 08/19/2017 6:40 PM INDICATION: COMPARISON : None FINDINGS: Moderate degenerative changes right hip. No definite fracture identified in the femur. No distinct hip fracture identified. IMPRESSION: No acute findings. Signed by: Dr. Tyrese Chacon MD on 2016 8:18 PM Dictated By: TYRESE CHACON MD 17 Transcribed By: ANASTASIA on 08/19/172017 COPY TO: LES GEIGER CT PELVIS WO [place] [address] Patient Name: MARQUIS SCHNEIDER MR #: [id number] : 1935 Age/Sex: 82/F Req # : [id number] Adm Physician: Ordered by: LES GEIGER Report #: [id number] Location: Room/Bed: Procedure: [id number] CT/CT PELVIS WO Exam Date: 08/19/17 Exam Time: 1929 REPORT STATUS: Signed EXAM: CT PELVIS WO DATE: 08/19/2017 6:40 PM INDICATION: Fall/pain COMPARISON: None Technique: CT of the pelvis was obtained without contrast. Images reviewed in the axial, coronal, and sagittal planes. FINDINGS: Moderate distal aortic vascular calcifications present. Moderate colonic stool present with scattered diverticula in the sigmoid colon. No distinct CT evidence of diverticulitis. Urinary bladder is unremarkable. The uterus is absent. No suspicious adenopathy or fluid is identified in the pelvis. Diffuse osseous demineralization limits evaluation. Lower lumbar degenerative changes are present with superior endplate deformities of L3 and L4. Vacuum disc phenomenon present at L4-5. Moderate degenerative changes are present in the hips. No definite acute fracture in the hips. There is deformity of the symphysis on the left extending into the left superior and inferior pubic ramus. IMPRESSION: Deformity of the left aspect of the pubic symphysis with extension into the central portion of the superior and inferior pubic ramus. Findings suggest sequela of trauma of unknown chronicity. Correlation for mechanism and location of pain recommended. MRI could be obtained for further evaluation. Degenerative changes in the hips with no distinct acute fracture. Osseous demineralization limits sensitivity of CT for fracture detection, however. If concern remains for hip fracture, MRI would be recommended. Compression deformities of lower lumbar spine, age- indeterminate. Signed by: Dr. Tyrese Chacon MD on 08/19/2017 8:24 PM Dictated By: TYRESE CHACON MD 23 Transcribed By: ANASTASIA on 08/19/172023 COPY TO: LES GEIGER HIPS BILAT 3-4VWS (+/- PELVIS) [facility] [address] [place] [address] Patient Name: MARQUIS SCHNEIDER MR #: [id number] : 1935 Age/Sex: 82/F Req #: [id number] Adm Physician: Ordered by: HOLLEY JAEGER MD Report #: [id number] Location: ER Room/Bed: Procedure: [id number] DX/HIPS BILAT 3-4VWS (+/- PELVIS) Exam Date: Exam Time: REPORT STATUS: Signed PROCEDURE: HIPS BILAT 3-4VWS (+/- PELVIS) INDICATION: Fall, bilateral hip pain COMPARISON: [facility], DX, LUMBAR 3 VIEW, 10/09/2015, 23:36. FINDINGS: Generalized osteopenia, which limits evaluation of the bony structures. No acute, displaced fractures or dislocations, within the limitations of the study. Bilateral mild bilateral hip degenerative changes. Degenerative disc changes are noted in the lower lumbosacral spine. No lytic or blastic lesions. Nonobstructive bowel gas pattern. CONCLUSION: 1. Generalized osteopenia, which limits evaluation of the bony structures. No acute, displaced fracture or dislocation, within the limitations of the study. Correlate clinically for need of further imaging. Rebecca Walker M.D. Dictated by: Rebecca Walker M.D. on 08/19/2017 at 16:37 Electronically approved by: Rebecca Walker M.D. on 08/19/2017 at 16:37 Dictated By: REBECCA WALKER MD [id number] Transcribed By: CHRISTINE on 08/19/17 1637 COPY TO: HOLLEY JAEGER MD CHEST SINGLE (PORTABLE) [place] [address] Patient Name: MARQUIS SCHNEIDER MR #: [id number] : 1935 Age/Sex: 82/F Req #: [id number] Adm Physician: Ordered by: JOSE ALEJANDRO MCKEON MD Report #: [id number] Location: ER Room/Bed: Procedure: [id number] DX/CHEST SINGLE (PORTABLE) Exam Date: 08/03/17 Exam Time: 0345 REPORT STATUS: Signed EXAMINATION: CHEST SINGLE (PORTABLE) INDICATION: Altered mental status COMPARISON: 10/09/2015 FINDINGS: TUBES and LINES: The pacemaker is intact. LUNGS: Lungs are not well inflated. There is perihilar interstitial opacities, consistent with interstitial edema. PLEURA: No pleural effusion or pneumothorax. HEART AND MEDIASTINUM: Cardiac size is moderately enlarged. There are atherosclerotic calcifications within the aorta. BONES AND SOFT TISSUES: No acute osseous lesion. Soft tissues are unremarkable. UPPER ABDOMEN: No free air under the diaphragm. IMPRESSION: Findings are compatible with cardiogenic pulmonary edema. Signed by: Dr. Marito Tomas M.D. on 08/03/2017 4:24 AM Dictated By: MARITO MCLEAN MD 3 Transcribed By: ANASTASIA on 08/03/17423 COPY TO: JOSE ALEJANDRO MCKEON MD CT BRAIN WO [place] [address] Patient Name: MARQUIS SCHNEIDER MR #: [id number] : 1935 Age/Sex: 82/F Req # : [id number] Adm Physician: Ordered by: JOSE ALEJANDRO MCKEON MD Report #: [id number] Location: Room/Bed: Procedure: [id number] CT/CT BRAIN WO Exam Date: 08/03/17 Exam Time: 0330 REPORT STATUS: Signed EXAMINATION: Head CT without contrast. HISTORY:Altered mental status. COMPARISON:CT brain from 10/09/2015. TECHNIQUE: Multidetector axial images were obtained from the foramen magnum to the vertex without contrast. The images were reconstructed using brain and bone algorithms. Thin section brain images were reformatted into coronal and sagittal planes. Intravenous contrast: None IMAGE QUALITY: Acceptable. FINDINGS: Skull/scalp: No abnormality. Parenchyma: No abnormal density. No acute hemorrhage, mass or acute major vascular territorial infarct. Arteries: Mild atherosclerotic calcification in bilateral carotid siphon. Dural sinuses: No abnormal density suggestive of thrombosis. Ventricles: Mild compensated dilatation due to volume loss. Extra-axial spaces: No abnormal density. Brain volume: Generalized age-related cerebral volume loss. Craniocervical junction: No mass, Chiari malformation, or basilar invagination. Sella: Partial empty sella. Paranasal/mastoid sinuses: Imaged portions unremarkable. IMPRESSION: No acute intracranial abnormality. Generalized age- related cerebral volume loss. Signed by: Dr. Nanda Ho M.D. on 2016 5:04 AM Dictated By: NANDA HO MD 3 Transcribed By: ANASTASIA on 08/03/17503 COPY TO: JOSE ALEJANDRO MCKEON MD
--- NOTE | 2018-02-01 15:56 | Diagnostic Imaging Report ---
History:Fell las night Comparison studies:CT head 08/03/17 Technique: Axial images were obtained from the skull base to the vertex. Coronal and sagittal images reconstructed from the axial data. Intravenous contrast: None Findings: Scalp/skull: No abnormalities. Extra-axial spaces: No masses. No fluid collections. Brain sulci: Mildly prominent. Ventricles: Mild compensatory dilatation. No hydrocephalus. Parenchyma: Few hypodensities in the supratentorial white matter are small vessel ischemic changes. No masses, hemorrhage, acute or chronic cortical vascular insults. Sellar/suprasellar region: No abnormalities. Craniocervical junction: Patent foramen magnum. No Chiari one malformation. Incidental findings: Atherosclerotic calcifications in the carotid siphons . Impression: No acute abnormalities. Stable Chronic findings: 1. Mild generalized volume loss. 2. Mild supratentorial white matter small vessel ischemic changes. Signed by: DR Han Bunn M.D. on 02/01/2018 3:52 PM
--- NOTE | 2018-02-01 16:00 | Diagnostic Imaging Report ---
EXAMINATION: CHEST SINGLE (NOT PORTABLE) INDICATION: Trauma yesterday. Possible broken shoulder. COMPARISON: None FINDINGS: TUBES and LINES: None. Dual lead left-sided cardiac pacemaker. LUNGS: Lungs are well inflated. Lungs are clear. There is no evidence of pneumonia or pulmonary edema. PLEURA: No pleural effusion or pneumothorax. HEART AND MEDIASTINUM: The cardiomediastinal silhouette is unremarkable. Mild calcification of the aortic arch. BONES AND SOFT TISSUES: The right humeral head appears mildly displaced inferiorly and medially. Ill-defined right clavicular head. DJD of AC joint bilaterally. UPPER ABDOMEN: No free air under the diaphragm. IMPRESSION: Possible right shoulder dislocation. No acute thoracic abnormality. Signed by: Dr. Destiney Reis M.D. on 02/01/2018 3:57 PM
--- NOTE | 2018-02-01 16:02 | Diagnostic Imaging Report ---
SHOULDER RIGHT COMPLETE - 3 views HISTORY: Pain possible broken shoulder. COMPARISON: None available. FINDINGS: Internal and external views are nearly identical. Bones: No acute displaced fracture. Osseous alignment is within normal limits. Joints: The humeral head appears mildly displaced medially and inferiorly in relation to the glenoid. Soft tissues: The soft tissues appear unremarkable. IMPRESSION: Possible glenohumeral dislocation. If patient's condition permits, consider further evaluation with Y view. Otherwise, a CT examination without contrast may be of benefit. Signed by: Dr. Destiney Reis M.D. on 02/01/2018 3:59 PM
--- NOTE | 2018-02-01 16:04 | Diagnostic Imaging Report ---
History: Fall Comparison studies: None Technique: Axial images were obtained through the cervical region.. Coronal and sagittal images reconstructed from the axial data.. Intravenous contrast: None Findings: Fractures: None. Soft tissues: No gross abnormalities. Atlantoaxial articulation: No acute abnormality. Alignment: Normal lordosis. No scoliosis. Cervicomedullary junction: No abnormalities. The foramen magnum is patent. Vertebrae: No infection or neoplasm. Degenerative changes: Disc degeneration, facet and uncinate process hypertrophy results in mild canal and moderate to severe foraminal narrowing from C4-C7. IMPRESSION: 1. No acute cervical spine abnormalities. 2. Cannot exclude ligament, spinal cord and or vascular abnormalities on the basis of this examination. Signed by: DR Han Bunn M.D. on 02/01/2018 4:01 PM
--- NOTE | 2018-02-01 16:05 | Diagnostic Imaging Report ---
PELVIS AP 1-2 VIEWS - 3 views HISTORY: Pain status post fall. COMPARISON: 08/19/17. FINDINGS: Bones: No acute displaced fracture. Osseous alignment is within normal limits. Remote fracture of the left pubic bone body. The sacrum and coccyx are obscured by bowel contents. 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 Degenerative changes of the lower lumbar spine. Soft tissues: The soft tissues appear unremarkable. IMPRESSION: No acute osseous abnormality. No displaced fracture. Signed by: Dr. Destiney Reis M.D. on 02/01/2018 4:01 PM
--- NOTE | 2018-02-01 17:30 | Diagnostic Imaging Report ---
SHOULDER RIGHT 1 VIEW - 3 views HISTORY: Pain COMPARISON: None available. FINDINGS: Y views demonstrate humeral head inferior to the glenoid, not centered on the glenoid. Pacemaker leads partially visualized. Impression: Mild subluxation of the glenohumeral joint. Signed by: Dr. Destiney Reis M.D. on 02/01/2018 5:27 PM
[2018-02-01 17:36] LABS: BILIRUBIN,URINE NEGATIVE (NEGATIVE); COLOR,URINE YELLOW (YELLOW); KETONES,URINE NEGATIVE (NEGATIVE); LEUKOCYTE ESTERASE ,URINE NEGATIVE (NEGATIVE); NITRITE,URINE NEGATIVE (NEGATIVE); PROTEIN,URINE DIPSTICK NEGATIVE (NEGATIVE); URINE UROBILINOGEN 0.2 mg/dL (0.2 - 1)
[2018-02-01 17:37] LABS: CLARITY,URINE CLEAR (CLEAR)
[2018-02-01 17:48] LABS: WBC,URINE (MAN) 0-5 /HPF (0-5)
[2018-02-01 17:49] LABS: BACTERIA,URINE MANY /HPF; EPITHELIAL CELLS,URINE RARE /LPF
[2018-02-01] MEDS ORDERED: MORPHINE SULFATE 2 MG/ML SYR IV ONE (18:30)
[2018-02-01] MEDS ORDERED: ONDANSETRON HCL INJ 2 MG/ML VIAL IV ONE (18:30)
--- NOTE | 2018-02-01 19:44 | Diagnostic Imaging Report ---
RIGHT SHOULDER - 2 VIEWS HISTORY: Status post reduction needs a Y view for review of glenohumeral joint reduction COMPARISON: None FINDINGS: No internal or external rotation views No displaced fracture or malalignment. The soft tissues appear unremarkable. IMPRESSION: 1. Limited view of the right shoulder with glenohumeral concordance. 2. AP internal and external rotation views are recommended Signed by: Dr. Marito Tomas M.D. on 02/01/2018 7:41 PM
[2018-02-01] MEDS ORDERED: ACETAMINOPHEN/CODEINE 300MG - 30MG TAB PO ONE (20:30)
[2018-02-01] MEDS ORDERED: ACETAMINOPHEN/CODEINE 300MG - 30MG TAB ONE (20:38)
--- NOTE | 2018-02-01 20:49 | Diagnostic Imaging Report ---
SHOULDER RIGHT 1 VIEW HISTORY: Dislocation, status post reduction COMPARISON: Y view and AP view on 02/01/2018 FINDINGS: Bones: No displaced fracture. Osseous alignment is within normal limits. Joints: The film was performed on the on the frontal AP view with internal rotation Soft tissues: The soft tissues appear unremarkable. IMPRESSION: 1. No acute radiographic abnormality. 2. Patient is status post reduction of glenohumeral joint dislocation and appears normal. 3. Follow-up in 7-10 days with internal and external rotation. Signed by: Dr. Marito Tomas M.D. on 02/01/2018 8:45 PM
== END 2018-02-01 20:43 | disposition home or self-care (01) ==
LOC: ER 13:55
DX: S43.034A Inferior dislocation of right humerus, initial encounter (principal); W01.0XXA Fall on same level from slipping, tripping and stumbling without subsequent striking against object, initial encounter; Y92.008 Other place in unspecified non-institutional (private) residence as the place of occurrence of the external cause
CPT/HCPCS: 23650; 70450; 71045; 72125; 72170; 73020; 73030; 81001; 99284; J2270; J2405